=== PATIENT | female | born 1940 | race Caucasian/White ===

== ENCOUNTER → 2016-07-22 10:11 | Outpatient (CLI) | payer MEDICARE, OTHER ==
[2016-01-13 13:19] VITALS: BMI 29.4
[~2016-07-22 10:11] MED LIST: BAYER CHEWABLE81 MG PO; BYSTOLIC20 MG PO; CALTRATE-600600 MG PO; COUMADIN5 MG PO; COUMADIN7.5 MG PO; CYMBALTA20 MG PO; DILAUDID2 MG PO; HYDROCHLOROTH12.5 M1 PO; K-DUR20 MEQ PO; NEXIUM40 MG PO; SYNTHROID88 MCG PO
== END | disposition home or self-care (01) ==
LOC: D.CT 10:11
DX: R10.9 Unspecified abdominal pain (principal)

== ENCOUNTER → 2016-08-11 08:36 | Outpatient (CLI) | payer MEDICARE, OTHER ==
[2016-01-13 13:19] VITALS: BMI 29.4
== END | disposition home or self-care (01) ==
LOC: D.RAD 08-07 08:30
DX: K21.9 Gastro-esophageal reflux disease without esophagitis (principal); K22.10 Ulcer of esophagus without bleeding

== ENCOUNTER → 2016-09-10 14:08 | Outpatient (CLI) | payer MEDICARE, OTHER ==
[2016-01-13 13:19] VITALS: BMI 29.4
== END | disposition home or self-care (01) ==
LOC: D.CT 13:30
DX: R51 Headache (principal)

== ENCOUNTER 2017-05-26 14:15 | Emergency (ER) | payer MEDICARE, OTHER ==
[2016-01-13 13:19] VITALS: BMI 29.4
[2017-05-26 15:27] LABS: BASOPHILS 0.2 % (0-2); EOSINOPHILS 1.5 % (0-7); HEMATOCRIT 35.1 % (36.0-48.0); HEMOGLOBIN 11.8 g/dL (12-16); IMMATURE GRANULOCYTES 0.2 % (0-5); LYMPHOCYTES 23.8 % (15-50); MCH 32.7 pg (26.0-34.0); MCHC 33.6 g/dL (31.0-37.0); MCV 97.2 fL (80.0-100.0); MEAN PLATELET VOLUME 8.4 fL (7.4-10.4); MONOCYTES 5.9 % (2-11); NEUTROPHILS 68.4 % (40-80); PLATELET COUNT 306 10x3/uL (130-400); RBC 3.61 10x6/uL (4.00-5.40); RDW 12.8 % (11.5-14.5); WBC 6.6 10x3/uL (4.8-10.8)
[2017-05-26 15:49] LABS: ALBUMIN 3.1 g/dL (3.4-5.0); ALKALINE PHOSPHATASE 86 U/L (46-116); ALT (SGPT) 21 U/L (10-68); CALC OSMOLALITY 269 mosm/kg (275-300); CALCIUM 8.6 mg/dL (8.5-10.1); CHLORIDE - SERUM 100 mmol/L (98-107); CREATININE - SERUM 0.8 mg/dL (0.6-1.3); GLUCOSE 88 mg/dL (74-106); POTASSIUM - SERUM 3.2 mmol/L (3.5-5.1); PROTEIN - SERUM 6.5 g/dL (6.4-8.2); SODIUM 135 mmol/L (136-145); UREA NITROGEN 15 mg/dL (7-18); eGFR NON AFRICAN AMERICAN 73 mL/min (90-120)
[2017-05-26 15:52] LABS: TROPONIN-I < 0.017 ng/mL (0.000-0.060)
== END 2017-05-26 20:27 | disposition home or self-care (01) ==
LOC: D.ER 14:15
PROVIDERS: Emergency Medicine
DX: R55 Syncope and collapse (principal); R51 Headache; M25.562 Pain in left knee; Z79.01 Long term (current) use of anticoagulants; E87.6 Hypokalemia; I10 Essential (primary) hypertension

== ENCOUNTER 2018-02-26 14:38 | Emergency (ER) | payer MEDICARE ==
[~2018-02-26] VITALS: Ht 177.8 cm; Wt 57.7 kg
[2018-02-26 14:54] VITALS: Ht 177.8 cm; Wt 57.7 kg
[2018-02-26] MEDS ORDERED: COLCRYS0.6 MG PO (14:56)
[2018-02-26] MEDS ORDERED: ENTOCORT EC3 MG PO (14:56)
[2018-02-26] MEDS ORDERED: COZAAR50 MG PO (14:56)
[2018-02-26] MEDS ORDERED: DEXILANT30 MG PO (14:56)
[2018-02-26] MEDS ORDERED: CARAFATE1 G PO (14:57)
[2018-02-26] MEDS ORDERED: ZOFRAN4 MG PO (14:57)
[2018-02-26 17:48] LABS: APPEARANCE CLEAR (CLEAR); BILIRUBIN NEGATIVE (NEGATIVE); COLOR DK YELLOW (YELLOW); GLUCOSE NEGATIVE (NEGATIVE); KETONE NEGATIVE (NEGATIVE); NITRITE NEGATIVE (NEGATIVE); PROTEIN TRACE mg/dL (NEGATIVE); UROBILINOGEN NORMAL (NORMAL)
[2018-02-26 17:51] LABS: BASOPHILS 0.3 % (0-2); EOSINOPHILS 0.8 % (0-7); HEMATOCRIT 37.9 % (36.0-48.0); HEMOGLOBIN 12.5 g/dL (12-16); IMMATURE GRANULOCYTES 0.2 % (0-5); MCH 31.5 pg (26.0-34.0); MCV 95.5 fL (80.0-100.0); MEAN PLATELET VOLUME 8.6 fL (7.4-10.4); MONOCYTES 10.6 % (2-11); NEUTROPHILS 60.1 % (40-80); PLATELET COUNT 297 10x3/uL (130-400); RBC 3.97 10x6/uL (4.00-5.40); RDW 14.1 % (11.5-14.5); WBC 6.2 10x3/uL (4.8-10.8)
[2018-02-26 18:21] LABS: ALBUMIN 3.4 g/dL (3.4-5.0); ANION GAP 9.9 mmol/L (8-16); BILIRUBIN - TOTAL 0.29 mg/dL (0.2-1.3); CALCIUM 8.5 mg/dL (8.5-10.1); CARBON DIOXIDE 27.9 mmol/L (21.0-32.0); CREATININE - SERUM 0.9 mg/dL (0.6-1.3); POTASSIUM - SERUM 3.8 mmol/L (3.5-5.1); PROTEIN - SERUM 6.7 g/dL (6.4-8.2)
[2018-02-26] MEDS ORDERED: TORADOL10 MG PO (21:09)
[2018-02-26] MEDS ORDERED: NEURONTIN 300300 MG PO (21:09)
[2018-02-26 21:28] VITALS: BP 122/74
== END 2018-02-26 21:29 | disposition home or self-care (01) ==
LOC: D.ER 14:38
PROVIDERS: Family Medicine
DX: R53.1 Weakness (principal); M54.16 Radiculopathy, lumbar region; E87.8 Other disorders of electrolyte and fluid balance, not elsewhere classified; I10 Essential (primary) hypertension